=== PATIENT | male | born 1960 | race Caucasian/White ===

== ENCOUNTER 2024-09-08 12:28 | Inpatient (IN) | payer MEDICARE, OTHER ==
[2024-09-08] MEDS: levETIRAcetam IV 500 MG/5 ML VIAL IVP STA (12:41)
[2024-09-08 12:43] LABS: Glucose,Whole Blood 140 mg/dL (70-110)
[2024-09-08 12:54] LABS: Basophils # (A) 0.1 k/uL (0-0.2); Basophils % (A) 1 %; Eosinophils # (A) 0.7 k/uL (0-0.7); Eosinophils % (A) 7 %; HGB 14.8 gm/dL (13.0-17.5); Lymphocytes # (A) 3.2 k/uL (1.0-4.8); Lymphocytes % (A) 31 %; MCH 31.2 pg (25.0-35.0); MCHC 32.1 g/dL (31.0-37.0); MCV 97.3 fL (80.0-100.0); Mean Platelet Volume 7.1; Monocytes # (A) 0.5 k/uL (0-1.0); Monocytes % (A) 4 %; Neutrophils # (A) 5.7 k/uL (1.3-7.7); Neutrophils % (A) 55 %; Platelet Count 402 k/uL (150-450); RBC 4.73 m/uL (4.30-5.90); RDW 12.6 % (11.5-15.5); WBC 10.4 k/uL (3.8-10.6)
[2024-09-08] MEDS: SODIUM CHLORIDE 0.9% 1,000 ML IV STA (12:56)
--- NOTE | 2024-09-08 12:57 | ED ---
General Adult HPI - General Chief complaint: Altered Mental Status Stated complaint: seizure Time Seen by Provider: 09/08/24 12:31 Source: family, RN notes reviewed Mode of arrival: EMS Limitations: language barrier, altered mental status, physical limitation - History of Present Illness Initial comments: Patient is a 64-year-old male present to the emergency department with concern for seizure. History is obtained from as patient has garbled speech from previous large stroke less than a year ago. Patient has also right-sided deficits which family feels is unchanged. Patient provides no history other than agreeing that he feels well. states patient did have an episode where his eyes rolled back and he did have shaking lasting 4 to 5 minutes. Patient woke up after that time. No history of similar symptoms previously. No history of previous seizure. - Related Data Home Medications Medication Instructions Recorded Confirmed Atorvastatin [Lipitor] 40 mg PO DAILY 09/08/24 09/08/24 DULoxetine HCL [Cymbalta] 60 mg PO DAILY 09/08/24 09/08/24 Gabapentin 300 mg PO TID 09/08/24 09/08/24 HYDROcodone/APAP 7.5-325MG [[place] 1 tab PO Q6H PRN 09/08/24 09/08/24 7.5-325] Losartan [Cozaar] 50 mg PO DAILY 09/08/24 09/08/24 Umeclidinium [place] [Incruse 1 puff INHALATION RT-DAILY 09/08/24 09/08/24 Ellipta] hydrOXYzine HCL [Atarax] 25 mg PO TID 09/08/24 09/08/24 hydroCHLOROthiazide 12.5 mg PO DAILY 09/08/24 09/08/24 Allergies Allergy/AdvReac Type Severity Reaction Status Date / Time No Known Allergies Allergy Verified 09/08/24 13:27 Review of Systems ROS Statement: Those systems with pertinent positive or pertinent negative responses have been documented in the HPI. ROS Other: All systems not noted in ROS Statement are negative. Limitations: ROS unobtainable due to patients medical condition Past Medical History Past Medical History: Asthma, COPD, CVA/TIA, Diabetes Mellitus Additional Past Medical History / Comment(s): stroke with right sided defecits, peg tube, back surgery, Past Surgical History: Tonsillectomy Past Psychological History: No Psychological Hx Reported Smoking Status: Current every day smoker Past Alcohol Use History: Occasional Past Drug Use History: Marijuana General Exam Limitations: no limitations General appearance: alert, in no apparent distress Head exam: Present: atraumatic Eye exam: Present: normal appearance, PERRL, EOMI Neck exam: Present: normal inspection Respiratory exam: Present: wheezes Cardiovascular Exam: Present: regular rate, normal rhythm GI/Abdominal exam: Present: soft. Absent: tenderness Extremities exam: Present: normal inspection. Absent: pedal edema, calf tenderness Neurological exam: Present: alert Expanded Neurological exam: Present: protecting the airway Speech: Present: expressive aphasia Cranial nerves: EOM's Intact: Normal Motor strength exam: RUE: 0, LUE: 5, RLE: 3, LLE: 5 Eye Response: (4) open spontaneously Motor Response: (6) obeys commands Verbal Response: incomprehensible sounds Psychiatric exam: Present: normal affect, normal mood Skin exam: Present: normal color Course Vital Signs 09/08/24 09/08/24 09/08/24 12:30 12:52 13:20 Temperature 97.6 F Pulse Rate 87 75 75 Respiratory 18 18 Rate Blood Pressure 106/85 O2 Sat by Pulse 88 L 93 L Oximetry 09/08/24 09/08/24 13:32 13:39 Temperature Pulse Rate 87 72 Respiratory 18 Rate Blood Pressure 116/82 O2 Sat by Pulse 95 Oximetry EKG Findings - EKG Results: EKG: interpreted by ERMD, sinus rhythm, normal axis, normal QRS, normal ST/T Medical Decision Making - Medical Decision Making Was pt. sent in by a medical professional or institution (, PA, WEB CONTENT PRODUCER, urgent care, hospital, or penitentiary...) When possible be specific @ -No Did you speak to anyone other than the patient for history (EMS, parent, family, police, friend...)? What history was obtained from this source @ -Majority of history taken from as patient is nonverbal Did you review nursing and triage notes (agree or disagree)? Why? @ -I reviewed and agree with nursing and triage notes Were old charts reviewed (outside hosp., previous admission, EMS record, old EKG, old radiological studies, urgent care reports/EKG's, penitentiary records)? Report findings @ -No old charts were reviewed Differential Diagnosis (chest pain, altered mental status, abdominal pain women, abdominal pain men, vaginal bleeding, weakness, fever, dyspnea, syncope, headache, dizziness, GI bleed, back pain, seizure, CVA, palpatations, mental h ealth, musculoskeletal)? @ -Differential Seizure: Recurrent seizure disorder, febrile seizure, alcohol withdrawal, stimulants, meningitis, encephalitis, intercranial hemorrhage, intracranial tumor, stroke, eclampsia, thyrotoxicosis, hypocalcemia, hyponatremia, hypernatremia, hypomagnesemia, psychogenic, this is not meant to be an all-inclusive list. EKG interpreted by me (3pts min.). @ -As above X-rays interpreted by me (1pt min.). @ -Chest x-ray concerning for infiltrates right upper and left lower CT interpreted by me (1pt min.). @ -CT scan of the brain shows large old left CVA U/S interpreted by me (1pt. min.). @ -None done What testing was considered but not performed or refused? (CT, X-rays, U/S, labs)? Why? @ -None What meds were considered but not given or refused? Why? @ -None Did you discuss the management of the patient with other professionals (professionals i.e. , PA, WEB CONTENT PRODUCER, lab, RT, psych nurse, social work program coordinator, rod puller and coiler, teacher, recreation officer, returned case inspector)? Give summary @ -Case discussed with Dr. Horan who will admit covering visiting physician group, this is who family states his primary care physician Was smoking cessation discussed for >3mins.? @ -No Was critical care preformed (if so, how long)? @ -No Were there social determinants of health that impacted care today? How? (Homelessness, low income, unemployed, alcoholism, drug addiction, transpor tation, low edu. Level, literacy, decrease access to med. care, custodial, rehab)? @ -No Was there de-escalation of care discussed even if they declined (Discuss DNR or withdrawal of care, Hospice)? DNR status @ -No What co-morbidities impacted this encounter? (DM, HTN, Smoking, COPD, CAD, Cancer, CVA, ARF, Chemo, Hep., AIDS, mental health diagnosis, sleep apnea, morbid obesity)? @ -History of large CVA Was patient admitted / discharged? Hospital course, mention meds given and route, prescriptions, significant lab abnormalities, going to OR and other pertinent info. @ -Patient presents with a peers to be new onset seizure. Patient does have some hypoxia and chest x-ray concerning for pneumonia. Patient will be admitted. Concern for pneumonia diagnosed at 1340. Blood cultures and lactic acid and IV antibiotics will be ordered. Patient and family reevaluated and updated. Admission orders written. Undiagnosed new problem with uncertain prognosis? @ -No Drug Therapy requiring intensive monitoring for toxicity (Heparin, Nitro, Insulin, Cardizem)? @ -No Were any procedures done? @ -No Diagnosis/symptom? @ -New onset seizure, pneumonia Acute, or Chronic, or Acute on Chronic? @ -Acute, acute Uncomplicated (without systemic symptoms) or Complicated (systemic symptoms)? @ -Default Side effects of treatment? @ -No Exacerbation, Progression, or Severe Exacerbation? @ -No Poses a threat to life or bodily function? How? (Chest pain, [place], [place], pneumonia, PE, COPD, DKA, ARF, appy, cholecystitis, CVA, Diverticulitis, Homicidal, Suicidal, threat to staff... and all critical care pts) @ -Threat to pulmonary and neurological function - Lab Data Result diagrams: 09/08/24 12:39 09/08/24 12:39 Lab Results 09/08/24 09/08/24 09/08/24 Range/Units 12:36 12:39 12:39 WBC 10.4 (3.8-10.6) k/uL RBC 4.73 (4.30-5.90) m/uL Hgb 14.8 (13.0-17.5) gm/dL Hct 46.0 (39.0-53.0) % MCV 97.3 (80.0-100.0) fL MCH 31.2 (25.0-35.0) pg MCHC 32.1 (31.0-37.0) g/dL RDW 12.6 (11.5-15.5) % Plt Count 402 (150-450) k/uL MPV 7.1 Neutrophils % 55 % Lymphocytes % 31 % Monocytes % 4 % Eosinophils % 7 % Basophils % 1 % Neutrophils # 5.7 (1.3-7.7) k/uL Lymphocytes # 3.2 (1.0-4.8) k/uL Monocytes # 0.5 (0-1.0) k/uL Eosinophils # 0.7 (0-0.7) k/uL Basophils # 0.1 (0-0.2) k/uL Sodium 136 L (137-145) mmol/L Potassium 3.7 (3.5-5.1) mmol/L Chloride 99 (98-107) mmol/L Carbon Dioxide 22 (22-30) mmol/L Anion Gap 15 mmol/L BUN 11 (9-20) mg/dL Creatinine 0.71 (0.66-1.25) mg/dL Est GFR (CKD-EPI)AfAm >90 (>60 ml/min/1.73 sqM) Est GFR (CKD-EPI)NonAf >90 (>60 ml/min/1.73 sqM) Glucose 149 H (74-99) mg/dL POC Glucose (mg/dL) 140 H (70-110) mg/dL POC Glu Import Specialist ID Monique Marr Calcium 9.8 (8.4-10.2) mg/dL Magnesium 1.9 (1.6-2.3) mg/dL Total Bilirubin 0.5 (0.2-1.3) mg/dL AST 24 (17-59) U/L ALT 17 (4-49) U/L Alkaline Phosphatase 81 (38-126) U/L Total Protein 7.6 (6.3-8.2) g/dL Albumin 4.5 (3.5-5.0) g/dL Serum Alcohol <10 mg/dL Disposition Clinical Impression: New onset seizure, Pneumonia Disposition: ADMITTED IP TO THIS [facility] Instructions (If sedation given, give patient instructions): Seizure/Epilepsy Discharge Instructions & Follow-Up Is patient prescribed a controlled substance at d/c from ED?: No Referrals: None,Stated [Primary Care Provider] - 1-2 days Time of Disposition: 13:48
--- NOTE | 2024-09-08 13:18 | XR ---
EXAMINATION TYPE: XR chest 2V DATE OF EXAM: 09/08/2024 CLINICAL INDICATION: Male, 64 years old with history of wheezing, TECHNIQUE: Frontal and lateral views of the chest are obtained. COMPARISON: None FINDINGS: Lateral view is suboptimal due to large body habitus and overlying upper extremity. There a re low lung volumes. There is lateral right mid lung and left lower lung increased opacity. No pleura l effusion or pneumothorax is seen bilaterally. Cardiac silhouette size is within normal limits. The osseous structures are intact. IMPRESSION: Low lung volumes with lateral right midlung and left lower lung acute infiltrates. [facility], , 09/08/2024 1:16 PM
[2024-09-08] MEDS: IPRATROPIUM-ALBUTEROL 3 ML NEB INHALATION STA (13:20)
--- NOTE | 2024-09-08 13:22 | CT ---
EXAMINATION TYPE: CT brain wo con CT DLP: 1186.4 mGycm, Automated exposure control for dose reduction was used. DATE OF EXAM: 09/08/2024 1:13 PM COMPARISON: None. CLINICAL INDICATION:Male, 64 years old with history of seizure activity, seizure activity TECHNIQUE: Brain: Multiple axial CT images of the brain were obtained without IV contrast. . Coronal and sagitta l reformats reviewed. FINDINGS: Brain: Extra-axial spaces: No abnormal extra-axial fluid collections. Ventricular system: No hydrocephalus. Ex vacuo dilatation of the left lateral ventricle. Cerebral parenchyma: Encephalomalacia from large left prior MCA infarct involving the left frontal, p arietal, and temporal lobes. There is also involvement of the left basal ganglia and insula. No acute intraparenchymal hemorrhage or mass effect. The shen-white junction is well differentiated. Cerebellum: Unremarkable. Mass effect: No evidence of midline shift. Intracranial vasculature: Atherosclerotic calcifications of the intracranial vessels. Soft tissues: Normal. Calvarium/osseous structures: No depressed skull fracture. Remote fracture of the right lamina papyra cea. Paranasal sinuses and mastoid air cells: The mastoid air cells are clear. Moderate mucosal thickening of the bilateral maxillary sinuses. Mild mucosal thickening of the bilateral sphenoid sinuses. Moder ate mucosal thickening of the right ethmoid sinus with mild to moderate mucosal thickening of the lef t ethmoid sinus. The left frontal sinus is relatively clear. Moderate mucosal thickening of the right frontal sinus. Visualized orbits: Orbital contents are intact. IMPRESSION: 1. No acute intracranial process. 2. Encephalomalacia from large remote left MCA territory infarct. Consider MRI if there is continued clinical concern. 3. Moderate paranasal sinus disease. [facility], , 09/08/2024 1:19 PM
[2024-09-08 13:30] LABS: ALT 17 U/L (4-49); AST 24 U/L (17-59); African American GFR (CKD) >90 (>60 ml/min/1.73 sqM); Albumin 4.5 g/dL (3.5-5.0); Alcohol <10 mg/dL; Alkaline Phosphatase 81 U/L (38-126); Anion Gap 15 mmol/L; Blood Urea Nitrogen 11 mg/dL (9-20); Calcium 9.8 mg/dL (8.4-10.2); Carbon Dioxide 22 mmol/L (22-30); Chloride 99 mmol/L (98-107); Glucose 149 mg/dL (74-99); Magnesium 1.9 mg/dL (1.6-2.3); Non-African American GFR(CKD) >90 (>60 ml/min/1.73 sqM); Potassium 3.7 mmol/L (3.5-5.1); Sodium 136 mmol/L (137-145); Total Bilirubin 0.5 mg/dL (0.2-1.3); Total Protein 7.6 g/dL (6.3-8.2)
[2024-09-08] MEDS ORDERED: PNEUMONIA PROTOCOL UTILIZED 1 EACH MISC PO PRN (13:49)
[2024-09-08] MEDS: SODIUM CHLORIDE 0.9% 1,000 ML IV SCH (14:55)
[2024-09-08] MEDS: IPRATROPIUM-ALBUTEROL 3 ML NEB INHALATION PRN (15:19)
[2024-09-08 15:25] LABS: Influenza A Not Detected (Not Detectd); Influenza B Not Detected (Not Detectd); RSV Not Detected (Not Detectd)
[2024-09-08] MEDS: AZITHROMYCIN 500 MG in SODIUM CHLORIDE 0.9% 250 ML IVPB STA (15:51)
[2024-09-08] MEDS ORDERED: hydrOXYzine HCL 25 MG TAB PO SCH (16:00)
[2024-09-08] MEDS: HYDROcodone/APAP 7.5-325MG 1 EACH TAB PO PRN (17:02)
[2024-09-08] MEDS: GABAPENTIN 300 MG CAP PO SCH (17:02)
[2024-09-08] MEDS: ENOXAPARIN 40 MG/0.4 ML SYRINGE SQ SCH (19:17)
--- NOTE | 2024-09-08 19:33 | P.CNPUL ---
History of Present Illness Consult date: 09/08/24 Reason for consult: pneumonia History of present illness: 64-year-old female patient, presented to the emergency department with altered mentation. The patient's was unable to provide any history. The information was given by the . The patient has had previous history of stroke and has speech deficits. The patient also has chronic right-sided weakness/hemiplegia (December 2023). He is wheelchair dependent and he is nonambulatory. He has a feeing tube. There is a concern for an underlying seizure disorder as the patient's noted that he had an episode where he had up rolling of the eyes and shaking that lasted for around 4 to 5 minutes. No previous history of seizure disorder. Based on that, the patient was brought into the hospital. The patient was afebrile. Hemodynamically stable. Currently is on 4 L of oxygen by nasal cannula. The white cell count is at 10.4 with a hemoglobin 14.8 and a platelet count of 402. Electrolytes are all within normal limits. LFTs are normal. Alcohol level is less than 10. The patient had a viral screen that was negative. In the emergency, a CAT scan of the brain was done that showed no acute process. There is encephalomalacia related to previous CVA the patient has a large remote left MCA distribution infarct with moderate degree of paranasal sinus disease. Chest x-ray showed small lung volumes, there is a lateral right midlung and left lower lobe pulmonary opacity concerning for pneumonia. Based on that, patient was started on IV Rocephin and Zithromax. The patient is also currently on Keppra 750 mg p.o. on a daily basis.Comorbidities include COPD, diabetes mellitus, previous history of CVA with residual right-sided weakness and speech deficits. The patient is also swallowing difficulties post CVA and the patient is receiving enteral feeding for nutritional support via a PEG tube. Patient is known to have hypertension hyperlipidemia in addition. Review of Systems Constitutional: Denies chills, Denies fever Eyes: denies as per HPI, denies blurred vision, denies bulging eye, denies decreased vision, denies diplopia, denies discharge, denies dry eye, denies irritation, denies itching, denies pain, denies photophobia, denies loss of peripheral vision, denies loss of vision, denies tunnel vision/blind spots Ears: deny: decreased hearing, ear discharge, earache, tinnitus Ears, nose, mouth and throat: Reports as per HPI Breasts: absent: as per HPI, gynecomastia Cardiovascular: Reports as per HPI Respiratory: Reports as per HPI, Reports cough Gastrointestinal: Reports as per HPI Genitourinary: Reports as per HPI Musculoskeletal: Reports as per HPI Musculoskeletal: absent: ankle pain, ankle stiffness, ankle swelling, as per HPI, elbow pain, elbow stiffness, elbow swelling, foot pain, foot stiffness, foot swelling, hand pain, hand stiffness, hand swelling, hip pain, hip stiffness, hip swelling, knee pain, knee stiffness, knee swelling, shoulder pain, shoulder stiffness, shoulder swelling, wrist pain, wrist stiffness, wrist swelling Integumentary: Reports as per HPI Neurological: Reports aphasia, Reports change in mentation, Reports gait dysfunction, Reports lack of coordination, Reports motor disturbance, Reports spasticity, Reports weakness Psychiatric: Reports as per HPI Endocrine: Reports as per HPI Hematologic/Lymphatic: Reports as per HPI Allergic/Immunologic: Reports as per HPI Past Medical History Past Medical History: COPD, CVA/TIA, Diabetes Mellitus, Hyperlipidemia, Hypertension Additional Past Medical History / Comment(s): stroke with right sided defecits, peg tube, back surgery, Past Surgical History: Tonsillectomy Past Psychological History: No Psychological Hx Reported Smoking Status: Current every day smoker Past Alcohol Use History: Occasional Past Drug Use History: Marijuana Medications and Allergies Home Medications Medication Instructions Recorded Confirmed Type Atorvastatin [Lipitor] 40 mg PO DAILY 09/08/24 09/08/24 History DULoxetine HCL [Cymbalta] 60 mg PO DAILY 09/08/24 09/08/24 History Gabapentin 300 mg PO TID 09/08/24 09/08/24 History HYDROcodone/APAP 7.5-325MG [[place] 1 tab PO Q6H PRN 09/08/24 09/08/24 History 7.5-325] Losartan [Cozaar] 50 mg PO DAILY 09/08/24 09/08/24 History Umeclidinium [place] [Incruse 1 puff INHALATION RT-DAILY 09/08/24 09/08/24 History Ellipta] hydrOXYzine HCL [Atarax] 25 mg PO TID 09/08/24 09/08/24 History hydroCHLOROthiazide 12.5 mg PO DAILY 09/08/24 09/08/24 History Allergies Allergy/AdvReac Type Severity Reaction Status Date / Time No Known Allergies Allergy Verified 09/08/24 13:27 Physical Exam Vitals: Vital Signs Temp Pulse Resp BP Pulse Ox 09/08/24 17:01 87 18 108/78 94 L 09/08/24 15:35 72 09/08/24 15:20 68 09/08/24 14:48 71 18 101/88 100 09/08/24 13:39 72 18 116/82 95 09/08/24 13:32 87 09/08/24 13:20 75 09/08/24 12:52 75 18 93 L 09/08/24 12:30 97.6 F 87 18 106/85 88 L Intake and Output 09/08/24 09/08/24 09/08/24 06:59 14:59 22:59 Output Total 300 Balance -300 Output: Urine 300 Other: # Voids 1 Weight 107.774 kg The patient appeared well nourished and normally developed. Vital signs as documented. Currently on 4 L of oxygen by nasal cannula Head exam is unremarkable. No scleral icterus or corneal arcus noted. Facial asymmetry with right sided weakness Neck is without jugular venous distension, thyromegaly, or carotid bruits. Carotid upstrokes are brisk bilaterally. Lungs are clear to auscultation and percussion. Cardiac exam reveals the PMI to be normally sized and situated. Rhythm is regular. First and second heart sounds normal. No murmurs, rubs or gallops. Abdominal exam reveals normal bowel sounds, no masses, no organomegaly and no aortic enlargement. Patient has a PEG tube in place Extremities are nonedematous and both femoral and pedal pulses are normal. Examination of the skin revealed no evidence of significant rashes, suspicious appearing nevi or other concerning lesions. Neurologically, the patient is altered neurologically the patient has right- sided hemiplegia related to previous CVA Results - Laboratory Findings CBC and BMP: 09/08/24 12:39 09/08/24 12:39 Abnormal lab findings: Abnormal Labs 09/08/24 09/08/24 12:36 12:39 Sodium 136 L Glucose 149 H POC Glucose (mg/dL) 140 H - Diagnostic Findings Chest x-ray: image reviewed Assessment and Plan Plan: Acute bilateral pneumonia with secondary hypoxic respiratory failure, consider aspiration as the patient has chronic dysphagia and he has been orally eating and the patient had ? seizures Acute hypoxic respiratory failure, currently on 4 L of oxygen by nasal cannula History of CVA with right-sided hemiplegia and expressive aphasia Chronic dysphagia, patient was receiving tube feeds and around 2 months ago the patient was started on oral and he has not undergone a Barium swallow Altered mentation, rule out underlying seizure and he patient is back to baseline Hypertension Hyperlipidemia Obesity COPD Plan Titrate oxygen flow to maintain saturation above 90%. Oxygenation is improved and the patient is currently on room air oxygen and is maintaining a saturation of 97% aspiration precautions Keep the patient n.p.o. for now till we do further testing. There is an increased risk for aspiration and this needs to be further investigated with a barium swallow Meanwhile, the patient should be able to receive enteral feeding and I am going to put a dietary consultation Barium swallow is to be ordered IV Unasyn EEG of the brain Neurology consultation start the patient on Keppra for any potential seizures Will continue to follow Okay will
[2024-09-08] MEDS: AMPICILLIN-SULBACTAM 1.5 GM in SODIUM CHLORIDE 0.9% 50 ML IVPB SCH (19:56)
[2024-09-08] MEDS: levETIRAcetam 250 MG TAB PO SCH (20:26)
--- NOTE | 2024-09-08 22:20 | P.HPIM ---
History of Present Illness H&P Date: 09/08/24 Chief Complaint: Seizure This is a 64-year-old patient follows with home MD, provider Blaire. Chronic medical condition include diabetes, hypertension, hyperlipidemia PEG tube.Patient's speech cannot be deciphered. History is obtained by the at the bedside. December 2023 patient had a rather stroke. Affecting mainly the right side. Patient started using the right leg. No movement in the right arm. Patient's speech is a bit better now but cannot really be understood. Patient is able to follow commands. Able to feed himself. Patient now working with therapy has a right leg brace. Was able to use 8 steps with a walker yesterday. Has a PEG tube that is not being used. has been feeding him by mouth. Patient is due for a barium swallow study today. Patient was noted to be "what was described as a possible seizure activity. Eyes rolled back. Shaking. Patient was confused for some time afterwards. Patient continues to smoke Review of systems as above. Social history: Lives with his . Smokes a pack a day for a long time. Physical examination: VITAL SIGNS: 97.6, 87, 18, 106 x 85, 88% room air GENERAL: BMI 34.1, laying bed awake. EYES: Pupils equal. Conjunctiva felicia l. HEENT: External appearance of nose and ears normal, oral cavity grossly normal. NECK: JVD not raised; masses not palpable. HEART: First and second heart sounds are normal; no edema. LUNGS: Respiratory rate normal; decreased breath sounds. ABDOMEN: Soft, nontender, liver spleen not palpable, no masses palpable. PEG tube PSYCH: Patient not able to speak l. MUSCULOSKELETAL:No Clubbing/cyanosis;muscles-grossly intact NEUROLOGICAL: Cranial nerves grossly intact; no facial asymmetry, speech does not make sense. Power in right arm 0/5. Some movement in the right leg.. LYMPHATICS: No lymph nodes palpable in the axilla and neck INVESTIGATIONS, reviewed in the clinical context: September 08, 2024: White count 10.4 hemoglobin 14.8 platelets 402 sodium 136 potassium 3.7 creatinine 0.71 EKG tracing personally reviewed by me-normal sinus rhythm. Chest x-ray film personally reviewed by me-scattered infiltrates CT brain without contrast: Encephalomalacia from large (MCA infarct involving the left frontal parietal temporal lobes. Also involvement of the left basal ganglia and insula. Influenza type A, type B, RSV, SARS-CoV-2: Not detected Assessment and plan: -New onset seizures likely precipitated by prior significant stroke in December 2023. This was her first witnessed episode. Because of significant stroke and high risk of recurrent seizure. Placed on Keppra. -Right hemiparesis with more loss of power in the right arm. From previous stroke in December 2023. Patient is getting physical therapy. Has a brace of the right leg. As of yesterday took about 8 steps with walker. 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 Speech cannot be understood -Dysphagia. Patient has a PEG tube has not been used. Patient has been feeding him. Will order a modified barium swallow. Consult speech. Hold off using PEG tube k for now. Patient to be kept n.p.o. except for medications with applesauce. -Probable aspiration pneumonitis secondary to seizure activity IV Unasyn -Essential hypertension Cozaar. Hydrochlorothiazide. -Hyperlipidemia Lipitor -Chronic nicotine dependence cigarette smoker Nicotine patch -COPD in a current smoker DuoNeb 3 times daily -Full code, discussed with Past Medical History Past Medical History: COPD, CVA/TIA, Diabetes Mellitus, Hyperlipidemia, Hypertension Additional Past Medical History / Comment(s): stroke with right sided defecits, peg tube, back surgery, Past Surgical History: Tonsillectomy Past Psychological History: No Psychological Hx Reported Smoking Status: Current every day smoker Past Alcohol Use History: Occasional Past Drug Use History: Marijuana Medications and Allergies Home Medications Medication Instructions Recorded Confirmed Type Atorvastatin [Lipitor] 40 mg PO DAILY 09/08/24 09/08/24 History DULoxetine HCL [Cymbalta] 60 mg PO DAILY 09/08/24 09/08/24 History Gabapentin 300 mg PO TID 09/08/24 09/08/24 History HYDROcodone/APAP 7.5-325MG [[place] 1 tab PO Q6H PRN 09/08/24 09/08/24 History 7.5-325] Losartan [Cozaar] 50 mg PO DAILY 09/08/24 09/08/24 History Umeclidinium [place] [[place] 1 puff INHALATION RT-DAILY 09/08/24 09/08/24 History Ellipta] hydrOXYzine HCL [Atarax] 25 mg PO TID 09/08/24 09/08/24 History hydroCHLOROthiazide 12.5 mg PO DAILY 09/08/24 09/08/24 History Allergies Allergy/AdvReac Type Severity Reaction Status Date / Time No Known Allergies Allergy Verified 09/08/24 13:27 Physical Exam Vitals: Vital Signs Temp Pulse Resp BP Pulse Ox 09/08/24 20:27 71 16 93/79 95 09/08/24 20:01 71 09/08/24 19:52 66 09/08/24 19:16 72 18 111/75 96 09/08/24 17:01 87 18 108/78 94 L 09/08/24 15:35 72 09/08/24 15:20 68 09/08/24 14:48 71 18 101/88 100 09/08/24 13:39 72 18 116/82 95 09/08/24 13:32 87 09/08/24 13:20 75 09/08/24 12:52 75 18 93 L 09/08/24 12:30 97.6 F 87 18 106/85 88 L Intake and Output 09/08/24 09/08/24 09/08/24 06:59 14:59 22:59 Output Total 300 Balance -300 Output: Urine 300 Other: # Voids 1 Weight 107.774 kg Results CBC & Chem 7: 09/08/24 12:39 09/08/24 12:39 Labs: Abnormal Lab Results - Last 24 Hours (Table) 09/08/24 09/08/24 Range/Units 12:36 12:39 Sodium 136 L (137-145) mmol/L Glucose 149 H (74-99) mg/dL POC Glucose (mg/dL) 140 H (70-110) mg/dL
[2024-09-08] MEDS: LACTATED RINGERS 1,000 ML IV SCH (23:41)
--- NOTE | 2024-09-09 06:49 | XR ---
EXAMINATION TYPE: XR chest 1V DATE OF EXAM: 09/09/2024 3:53 AM COMPARISON: Chest radiographs from 09/08/2024 TECHNIQUE: XR chest 1V Portable AP radiograph of the chest. CLINICAL INDICATION:Male, 64 years old with history of pneumonia; FINDINGS: Patient is rotated which limits evaluation. Lungs/Pleura: There is no evidence of pleural effusion or pneumothorax. Improving subtle right midlun g and bilateral lower lung airspace opacities. Pulmonary vascularity: Unremarkable. Heart/mediastinum: Cardiomediastinal silhouette is unremarkable. Musculoskeletal: No acute osseous pathology. IMPRESSION: Improving subtle right midlung and bilateral lower lung airspace opacities. [facility], , 09/09/2024 6:47 AM
[2024-09-09] MEDS ORDERED: TIOTROPIUM 2.5 MCG INHALER INHALATION SCH (08:00)
[2024-09-09] MEDS: DULoxetine HCL 60 MG CAPSULE.DR PO SCH (09:00)
[2024-09-09] MEDS: hydroCHLOROthiazide 12.5 MG CAP PO SCH (09:00)
[2024-09-09] MEDS: LOSARTAN 50 MG TAB PO SCH (09:00)
[2024-09-09] MEDS ORDERED: AZITHROMYCIN 500 MG TAB PO SCH (09:00)
[2024-09-09] MEDS: ATORVASTATIN 40 MG TAB PO SCH (09:01)
[2024-09-09] MEDS: TIOTROPIUM 2.5 MCG INHALER INHALATION SCH (09:23)
[2024-09-09 14:07] VITALS: BMI 34.0
--- NOTE | 2024-09-09 14:07 | P.PN ---
Subjective Progress Note Date: 09/09/24 64-year-old female patient, presented to the emergency department with altered mentation. The patient's was unable to provide any history. The information was given by the . The patient has had previous history of stroke and has speech deficits. The patient also has chronic right-sided weakness/hemiplegia (December 2023). He is wheelchair dependent and he is nonambulatory. He has a feeing tube. There is a concern for an underlying seizure disorder as the patient's noted that he had an episode where he had up rolling of the eyes and shaking that lasted for around 4 to 5 minutes. No previous history of seizure disorder. Based on that, the patient was brought into the hospital. The pat ient was afebrile. Hemodynamically stable. Currently is on 4 L of oxygen by nasal cannula. The white cell count is at 10.4 with a hemoglobin 14.8 and a platelet count of 402. Electrolytes are all within normal limits. LFTs are normal. Alcohol level is less than 10. The patient had a viral screen that was negative. In the emergency, a CAT scan of the brain was done that showed no acute process. There is encephalomalacia related to previous CVA the patient has a large remote left MCA distribution infarct with moderate degree of paranasal sinus disease. Chest x-ray showed small lung volumes, there is a lateral right midlung and left lower lobe pulmonary opacity concerning for pneumonia. Based on that, patient was started on IV Rocephin and Zithromax. The patient is also currently on Keppra 750 mg p.o. on a daily basis.Comorbidities include COPD, diabetes mellitus, previous history of CVA with residual right-sided weakness and speech deficits. The patient is also swallowing difficulties post CVA and the patient is receiving enteral feeding for nutritional support via a PEG tube. Patient is known to have hypertension hyperlipidemia in addition. On 09/09/2024, the patient is being seen for a follow-up. Patient is clinically stable. Remains NPO. No interval worsening shortness of breath. The patient currently is on 3 L of oxygen by nasal cannula with a pulse ox of 92%. No seizure activity has been noted. Family is at the bedside. Awaiting and neurology consultation. The patient was maintained on a IV Unasyn regarding aspiration pneumonia. Remains on DuoNeb nebulized treatments [id number]. Objective - Vital Signs Vital signs: Vital Signs Temp 98.2 F 09/09/24 10:28 Pulse 76 09/09/24 10:28 Resp 20 09/09/24 10:28 BP 96/71 09/09/24 10:28 Pulse Ox 94 L 09/09/24 10:28 FiO2 Intake & Output 09/08/24 09/09/24 09/09/24 18:59 06:59 18:59 Output Total 300 550 Balance -300 -550 Weight 107.774 kg Output: Urine 300 550 Other: # Voids 1 - Exam The patient appeared well nourished and normally developed. Vital signs as documented. Currently on 3 L of oxygen by nasal cannula Head exam is unremarkable. No scleral icterus or corneal arcus noted. Facial asymmetry with right sided weakness Neck is without jugular venous distension, thyromegaly, or carotid bruits. Carotid upstrokes are brisk bilaterally. Lungs are clear to auscultation and percussion. Cardiac exam reveals the PMI to be normally sized and situated. Rhythm is regular. First and second heart sounds normal. No murmurs, rubs or gallops. Abdominal exam reveals normal bowel sounds, no masses, no organomegaly and no aortic enlargement. Patient has a PEG tube in place Extremities are nonedematous and both femoral and pedal pulses are normal. Examination of the skin revealed no evidence of significant rashes, suspicious appearing nevi or other concerning lesions. Neurologically, the patient is altered neurologically the patient has right- sided hemiplegia related to previous CVA - Labs CBC & Chem 7: 09/08/24 12:39 09/08/24 12:39 Labs: Abnormal Lab Results - Last 24 Hours (Table) 09/08/24 09/08/24 Range/Units 12:36 12:39 Sodium 136 L (137-145) mmol/L Glucose 149 H (74-99) mg/dL POC Glucose (mg/dL) 140 H (70-110) mg/dL Assessment and Plan Plan: Acute bilateral pneumonia with secondary hypoxic respiratory failure, consider aspiration as the patient has chronic dysphagia and he has been orally eating and the patient had ? seizures Acute hypoxic respiratory failure, currently on 3 L of oxygen by nasal cannula History of CVA with right-sided hemiplegia and expressive aphasia Chronic dysphagia, patient was receiving tube feeds and around 2 months ago the patient was started on oral and he has not undergone a Barium swallow Altered mentation, rule out underlying seizure and he patient is back to baseline Hypertension Hyperlipidemia Obesity COPD Plan Clinically stable and unchanged compared to yesterday and the patient is stable for now. Titrate oxygen flow to maintain saturation above 90%. Oxygenation is improved and the patient is currently on room air oxygen and is maintaining a saturation of 97% aspiration precautions Keep the patient n.p.o. for now till we do further testing. There is an increased risk for aspiration and this needs to be further investigated with a barium swallow Meanwhile, the patient should be able to receive enteral feeding and I am going to put a dietary consultation Barium swallow is to be ordered IV Unasyn EEG of the brain Neurology consultation start the patient on Keppra for any potential seizures Will continue to follow Time with Patient: Greater than 30
--- NOTE | 2024-09-09 18:32 | P.PN ---
Progress Note - Text Progress Note Date: 09/09/24 Chief Complaint: Seizure This is a 64-year-old patient follows with home MD, provider Blaire. Chronic medical condition include diabetes, hypertension, hyperlipidemia PEG tube.Patient's speech cannot be deciphered. History is obtained by the at the bedside. December 2023 patient had a rather stroke. Affecting mainly the right side. Patient started using the right leg. No movement in the right arm. Patient's speech is a bit better now but cannot really be understood. Patient is able to follow commands. Able to feed himself. Patient now working with therapy has a right leg brace. Was able to use 8 steps with a walker yesterday. Has a PEG tube that is not being used. has been feeding him by mouth. Patient is due for a barium swallow study today. Patient was noted to be "what was described as a possible seizure activity. Eyes rolled back. Shaking. Patient was confused for some time afterwards. Patient continues to smoke September 09: Overflowing the ER. at the bedside. Spoke to the nurse. Put the patient on applesauce. Still formal swallow study done on Wednesday. Discussed with . On IV Unasyn. Taking oral medications. Active Medications Hydrocodone Bitart/Acetaminophen (Hydrocodone/Apap 7.5-325mg 1 Each Tab) 1 each PO Q6H PRN PRN Reason: Pain Last Admin: 09/09/24 09:01 Dose: 1 each Albuterol/Ipratropium (Ipratropium-Albuterol 3 Ml Neb) 3 ml INHALATION RT-Q4H PRN PRN Reason: shortness of breath Last Admin: 09/08/24 19:50 Dose: 3 ml Atorvastatin Calcium (Atorvastatin 40 Mg Tab) 40 mg PO DAILY [facility] Last Admin: 09/09/24 09:01 Dose: 40 mg Duloxetine HCl (Duloxetine Hcl 60 Mg Capsule.Dr) 60 mg PO DAILY [facility] Last Admin: 09/09/24 09:00 Dose: 60 mg Enoxaparin Sodium (Enoxaparin 40 Mg/0.4 Ml Syringe) 40 mg SQ DAILY [facility] Last Admin: 09/09/24 09:02 Dose: 40 mg Gabapentin (Gabapentin 300 Mg Cap) 300 mg PO TID [facility] Last Admin: 09/09/24 15:22 Dose: 300 mg Hydrochlorothiazide (Hydrochlorothiazide 12.5 Mg Cap) 12.5 mg PO DAILY [facility] Last Admin: 09/09/24 09:00 Dose: 12.5 mg Ampicillin Sodium/Sulbactam (Sodium 1.5 gm/ Sodium Chloride) 50 mls @ 100 mls/hr IVPB Q6HR [facility]; Protocol Last Admin: 09/09/24 12:03 Dose: 100 mls/hr Lactated Ringer's (Lactated Ringers) 1,000 mls @ 100 mls/hr IV .Q10H [facility] Last Admin: 09/09/24 14:41 Dose: 100 mls/hr Levetiracetam (Levetiracetam 750 Mg Tab) 750 mg PO Q12HR [place] Losartan Potassium (Losartan 50 Mg Tab) 50 mg PO DAILY [facility] Last Admin: 09/09/24 09:02 Dose: 50 mg Miscellaneous Information (Pneumonia Protocol Utilized 1 Each Misc) 1 each PO ONCE PRN PRN Reason: Per Protocol Tiotropium [place] (Tiotropium 2.5 Mcg Inhaler) 2 puff INHALATION RT-DAILY [facility] Last Admin: 09/09/24 09:23 Dose: 2 puff Social history: Lives with his . Smokes a pack a day for a long time. Physical examination: VITAL SIGNS: 98.2, 71, 18, 92.72, 92% on 3 L GENERAL: BMI 34.1, sitting up in bed. EYES: Pupils equal. Conjunctiva felicia l. HEENT: External appearance of nose and ears normal, oral cavity grossly normal. NECK: JVD not raised; masses not palpable. HEART: First and second heart sounds are normal; no edema. LUNGS: Respiratory rate normal; decreased breath sounds. ABDOMEN: Soft, nontender, liver spleen not palpable, no masses palpable. PEG tube PSYCH: Unable to speak MUSCULOSKELETAL:No Clubbing/cyanosis;muscles-grossly intact NEUROLOGICAL: Cranial nerves grossly intact; no facial asymmetry, garbled speech e. Power in right arm 0/5. Some movement in the right leg.. INVESTIGATIONS, reviewed in the clinical context: Procalcitonin 0.06 September 08, 2024: White count 10.4 hemoglobin 14.8 platelets 402 sodium 136 potassium 3.7 creatinine 0.71 EKG tracing personally reviewed by me-normal sinus rhythm. Chest x-ray film personally reviewed by me-scattered infiltrates CT brain without contrast: Encephalomalacia from large (MCA infarct involving the left frontal parietal temporal lobes. Also involvement of the left basal ganglia and insula. Influenza type A, type B, RSV, SARS-CoV-2: Not detected Assessment and plan: -New onset seizures likely precipitated by prior significant stroke in December 2023. This was her first witnessed episode. Because of significant stroke and high risk of recurrent seizure. Placed on Keppra. EEG pending. Neurology consulted -Right hemiparesis with more loss of power in the right arm. From previous stroke in December 2023. Patient is getting physical therapy. Has a brace of the right leg. Day prior to admission took about 8 steps with walker. 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 Speech cannot be understood -Dysphagia. Patient has a PEG tube has not been used. Patient has been feeding him. Will order a modified barium swallow-Wednesday. Consult speech. Hold off using PEG tube feeding for now. Applesauce only with oral medications -Probable aspiration pneumonitis secondary to seizure activity IV Unasyn -Essential hypertension Cozaar. Hydrochlorothiazide. -Hyperlipidemia Lipitor -Chronic nicotine dependence cigarette smoker Nicotine patch -COPD in a current smoker DuoNeb 3 times daily -Full code, discussed with Past Medical History Past Medical History: COPD, CVA/TIA, Diabetes Mellitus, Hyperlipidemia, Hypertension Additional Past Medical History / Comment(s): stroke with right sided defecits, peg tube, back surgery, Past Surgical History: Tonsillectomy Past Psychological History: No Psychological Hx Reported Smoking Status: Current every day smoker Past Alcohol Use History: Occasional Past Drug Use History: Marijuana
--- NOTE | 2024-09-10 12:50 | P.PN ---
Progress Note - Text Progress Note Date: 09/10/24 Chief Complaint: Seizure This is a 64-year-old patient follows with home MD, provider Blaire. Chronic medical condition include diabetes, hypertension, hyperlipidemia PEG tube.Patient's speech cannot be deciphered. History is obtained by the at the bedside. December 2023 patient had a rather stroke. Affecting mainly the right side. Patient started using the right leg. No movement in the right arm. Patient's speech is a bit better now but cannot really be understood. Patient is able to follow commands. Able to feed himself. Patient now working with therapy has a right leg brace. Was able to use 8 steps with a walker yesterday. Has a PEG tube that is not being used. has been feeding him by mouth. Patient is due for a barium swallow study today. Patient was noted to be "what was described as a possible seizure activity. Eyes rolled back. Shaking. Patient was confused for some time afterwards. Patient continues to smoke September 09: Overflowing the ER. at the bedside. Spoke to the nurse. Put the patient on applesauce. Still formal swallow study done on Wednesday. Discussed with . On IV Unasyn. Taking oral medications. September 10: No further episodes of seizures reported. Tolerating applesauce and medications. Spoke to nurse Dayna. No signs of coughing. Pending formal swallow study tomorrow and speech therapy. Pending EEG. On Keppra. IV fluids Active Medications Hydrocodone Bitart/Acetaminophen (Hydrocodone/Apap 7.5-325mg 1 Each Tab) 1 each PO Q6H PRN PRN Reason: Pain Last Admin: 09/09/24 09:01 Dose: 1 each Albuterol/Ipratropium (Ipratropium-Albuterol 3 Ml Neb) 3 ml INHALATION RT-Q4H PRN PRN Reason: shortness of breath Last Admin: 09/08/24 19:50 Dose: 3 ml Atorvastatin Calcium (Atorvastatin 40 Mg Tab) 40 mg PO DAILY [facility] Last Admin: 09/10/24 08:41 Dose: 40 mg Duloxetine HCl (Duloxetine Hcl 60 Mg Capsule.Dr) 60 mg PO DAILY [facility] Last Admin: 09/10/24 08:41 Dose: 60 mg Enoxaparin Sodium (Enoxaparin 40 Mg/0.4 Ml Syringe) 40 mg SQ DAILY [facility] Last Admin: 09/10/24 08:40 Dose: 40 mg Gabapentin (Gabapentin 300 Mg Cap) 300 mg PO TID [facility] Last Admin: 09/10/24 08:41 Dose: 300 mg Hydrochlorothiazide (Hydrochlorothiazide 12.5 Mg Cap) 12.5 mg PO DAILY [facility] Last Admin: 09/10/24 08:41 Dose: 12.5 mg Ampicillin Sodium/Sulbactam (Sodium 1.5 gm/ Sodium Chloride) 50 mls @ 100 mls/hr IVPB Q6HR [facility]; Protocol Last Admin: 09/10/24 12:40 Dose: 100 mls/hr Lactated Ringer's (Lactated Ringers) 1,000 mls @ 100 mls/hr IV .Q10H [facility] Last Admin: 09/10/24 11:02 Dose: 100 mls/hr Levetiracetam (Levetiracetam 750 Mg Tab) 750 mg PO Q12HR [facility] Last Admin: 09/10/24 08:41 Dose: 750 mg Losartan Potassium (Losartan 50 Mg Tab) 50 mg PO DAILY [facility] Last Admin: 09/10/24 08:41 Dose: 50 mg Miscellaneous Information (Pneumonia Protocol Utilized 1 Each Misc) 1 each PO ONCE PRN PRN Reason: Per Protocol Tiotropium [place] (Tiotropium 2.5 Mcg Inhaler) 2 puff INHALATION RT-DAILY [facility] Last Admin: 09/10/24 09:39 Dose: 2 puff Social history: Lives with his . Smokes a pack a day for a long time. Physical examination: VITAL SIGNS: 98.2, 77, 16, 107 x 68, 93% room air GENERAL: BMI 34.1, laying in bed, comfortable EYES: Pupils equal. Conjunctiva felicia l. HEENT: External appearance of nose and ears normal, oral cavity grossly normal. NECK: JVD not raised; masses not palpable. HEART: First and second heart sounds are normal; no edema. LUNGS: Respiratory rate normal; decreased breath sounds. ABDOMEN: Soft, nontender, liver spleen not palpable, no masses palpable. PEG tube PSYCH: Unable to speak MUSCULOSKELETAL:No Clubbing/cyanosis;muscles-grossly intact NEUROLOGICAL: Cranial nerves grossly intact; no facial asymmetry, garbled speech . Power in right arm 0/5. Some movement in the right leg.. Moves his left side INVESTIGATIONS, reviewed in the clinical context: Procalcitonin 0.06 September 08, 2024: White count 10.4 hemoglobin 14.8 platelets 402 sodium 136 potassium 3.7 creatinine 0.71 EKG tracing personally reviewed by me-normal sinus rhythm. Chest x-ray film personally reviewed by me-scattered infiltrates CT brain without contrast: Encephalomalacia from large (MCA infarct involving the left frontal parietal temporal lobes. Also involvement of the left basal ganglia and insula. Influenza type A, type B, RSV, SARS-CoV-2: Not detected Assessment and plan: -New onset seizures likely precipitated by prior significant stroke in December 2023. This was her first witnessed episode. Because of significant stroke and high risk of recurrent seizure. Placed on Keppra. EEG pending. Neurology consulted -Right hemiparesis with more loss of power in the right arm. From previous stroke in December 2023. Patient is getting physical therapy. Has a brace of the right leg. Day prior to admission took about 8 steps with walker. 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 Speech cannot be understood -Dysphagia. Patient has a PEG tube has not been used. Patient has been feeding him. Will order a modified barium swallow-Wednesday. Consult speech. Hold off using PEG tube feeding for now. Tolerating applesauce only with oral medications -Probable aspiration pneumonitis secondary to seizure activity IV Unasyn -Essential hypertension Cozaar. Hydrochlorothiazide. -Hyperlipidemia Lipitor -Chronic nicotine dependence cigarette smoker Nicotine patch -COPD in a current smoker DuoNeb 3 times daily -Full code, [discussed with ] Pending modified barium swallow, speech therapy input. EEG pending. Past Medical History Past Medical History: COPD, CVA/TIA, Diabetes Mellitus, Hyperlipidemia, Hypertension Additional Past Medical History / Comment(s): stroke with right sided defecits, peg tube, back surgery, Past Surgical History: Tonsillectomy Past Psychological History: No Psychological Hx Reported Smoking Status: Current every day smoker Past Alcohol Use History: Occasional Past Drug Use History: Marijuana
--- NOTE | 2024-09-10 13:33 | P.PN ---
Subjective Progress Note Date: 09/10/24 64-year-old female patient, presented to the emergency department with altered mentation. The patient's was unable to provide any history. The information was given by the . The patient has had previous history of stroke and has speech deficits. The patient also has chronic right-sided weakness/hemiplegia (December 2023). He is wheelchair dependent and he is nonambulatory. He has a feeing tube. There is a concern for an underlying seizure disorder as the patient's noted that he had an episode where he had up rolling of the eyes and shaking that lasted for around 4 to 5 minutes. No previous history of seizure disorder. Based on that, the patient was brought into the hospital. The pat ient was afebrile. Hemodynamically stable. Currently is on 4 L of oxygen by nasal cannula. The white cell count is at 10.4 with a hemoglobin 14.8 and a platelet count of 402. Electrolytes are all within normal limits. LFTs are normal. Alcohol level is less than 10. The patient had a viral screen that was negative. In the emergency, a CAT scan of the brain was done that showed no acute process. There is encephalomalacia related to previous CVA the patient has a large remote left MCA distribution infarct with moderate degree of paranasal sinus disease. Chest x-ray showed small lung volumes, there is a lateral right midlung and left lower lobe pulmonary opacity concerning for pneumonia. Based on that, patient was started on IV Rocephin and Zithromax. The patient is also currently on Keppra 750 mg p.o. on a daily basis.Comorbidities include COPD, diabetes mellitus, previous history of CVA with residual right-sided weakness and speech deficits. The patient is also swallowing difficulties post CVA and the patient is receiving enteral feeding for nutritional support via a PEG tube. Patient is known to have hypertension hyperlipidemia in addition. On 09/09/2024, the patient is being seen for a follow-up. Patient is clinically stable. Remains NPO. No interval worsening shortness of breath. The patient currently is on 3 L of oxygen by nasal cannula with a pulse ox of 92%. No seizure activity has been noted. Family is at the bedside. Awaiting and neurology consultation. The patient was maintained on a IV Unasyn regarding aspiration pneumonia. Remains on DuoNeb nebulized treatments [id number]. On 09/10/2024, the patient is calm and comfortable and the patient is on room air oxygen with a pulse ox of 92%. The patient remains on IV Unasyn. No seizure a ctivity has been noted and we are still awaiting a swallow evaluation and a neurology evaluation. The patient remains on Keppra. EEG has not been completed yet. Neurology consultation is still pending. Meanwhile, the patient is awake and alert. He has chronic aphasia. Viral screen has been negative. Legionella urine antigen was also negative. No other new labs from today. Objective - Vital Signs Vital signs: Vital Signs Temp 98.2 F 09/10/24 08:00 Pulse 77 09/10/24 08:00 Resp 16 09/10/24 08:00 BP 107/68 09/10/24 08:00 Pulse Ox 99 09/10/24 09:41 FiO2 21 09/10/24 09:41 Intake & Output 09/09/24 09/10/24 09/10/24 18:59 06:59 18:59 Weight 107.774 kg 107.774 kg Other: Voiding Method Urinal - Exam The patient appeared well nourished and normally developed. Vital signs as documented. Currently on room air oxygen Head exam is unremarkable. No scleral icterus or corneal arcus noted. Facial asymmetry with right sided weakness Neck is without jugular venous distension, thyromegaly, or carotid bruits. Carotid upstrokes are brisk bilaterally. Lungs are clear to auscultation and percussion. Cardiac exam reveals the PMI to be normally sized and situated. Rhythm is regular. First and second heart sounds normal. No murmurs, rubs or gallops. Abdominal exam reveals normal bowel sounds, no masses, no organomegaly and no aortic enlargement. Patient has a PEG tube in place Extremities are nonedematous and both femoral and pedal pulses are normal. Examination of the skin revealed no evidence of significant rashes, suspicious appearing nevi or other concerning lesions. Neurologically, the patient is altered neurologically the patient has right- sided hemiplegia related to previous CVA - Labs CBC & Chem 7: 09/08/24 12:39 09/08/24 12:39 Labs: Microbiology - Last 24 Hours (Table) 09/08/24 14:37 Blood Culture - Preliminary Blood Assessment and Plan Plan: Acute bilateral pneumonia with secondary hypoxic respiratory failure, consider aspiration as the patient has chronic dysphagia and he has been orally eating and the patient had ? seizures Acute hypoxic respiratory failure, improved and the patient is currently on room air oxygen History of CVA with right-sided hemiplegia and expressive aphasia Chronic dysphagia, patient was receiving tube feeds and around 2 months ago the patient was started on oral and he has not undergone a Barium swallow Altered mentation, rule out underlying seizure and he patient is back to baseline Hypertension Hyperlipidemia Obesity COPD Plan Clinically stable and patient is currently on room air oxygen Keep the patient n.p.o. for now till we do further testing. There is an increased risk for aspiration and this needs to be further investigated with a barium swallow Meanwhile, the patient should be able to receive enteral feeding and dietary is on the case Barium swallow is to be ordered IV Unasyn EEG of the brain Neurology consultation is still pending Continue Keppra for any potential seizures Will continue to follow Time with Patient: Greater than 30
--- NOTE | 2024-09-10 16:29 | P.CNNES ---
History of Present Illness Consult date: 09/10/24 History of Present Illness: The patient is a 64-year-old male who was seen in neurologic consultation on September 10, 2024, in collaboration with Sujatha Reyes, via teleneurology. Neurology consultation is being done on this date because the original consultation was placed for the incorrect person. This patient therefore, was not on my list yesterday and so reconsultation was put in for the correction neurologist and the patient's appeared on my list today. History is obtained from the patient's who is present at the bedside at the time of the evaluation. The patient reportedly is a gentleman who has a history of a very large, left sided cerebral infarct. He was reportedly brought into the emergency department because of what appeared to be a seizure. The patient's reports that the patient was laying in bed. His eyes were open and looked as if they were rolling back into his head. He reportedly was unresponsive. She believes he was not breathing for approximately 60 seconds. There is also shaking movements lasting for approximately 3 to 4 minutes. Patient's reports that her niece was present at the time and performed the Heimlich maneuver. Apparently, immediately following the Heimlich maneuver, the patient became responsive. The reports that the patient looked at her and appropriately responded to her. The patient is however nonverbal. The patient reportedly has no history of seizure. According to the patient's , patient has been slowly improving. He does have a PEG tube placed however does not use it. He reportedly is able to swallow. The patient's reports that she feeds him. He is now able to move his right leg somewhat and was recently, with the assistance of a walker, was able to take 8 steps. In the emergency department, CT scan of the brain was performed. There is no reported evidence of acute hemorrhage or acute infarct. The previous, large, remote infarct was demonstrated. Also in the emergency department, chest x-ray was performed. There is reported to be infiltrate which was thought to be consistent with aspiration pneumonia. Review of Systems Unable to accurately obtain secondary to mental status of patient Past Medical History Past Medical History: COPD, CVA/TIA, Fibromyalgia, Hyperlipidemia, Hypertension Additional Past Medical History / Comment(s): stroke with right sided defecits, peg tube. History of Any Multi-Drug Resistant Organisms: None Reported Past Surgical History: Tonsillectomy Past Anesthesia/Blood Transfusion Reactions: No Reported Reaction Past Psychological History: No Psychological Hx Reported Smoking Status: Current every day smoker Past Alcohol Use History: Occasional Past Drug Use History: Marijuana Medications and Allergies Home Medications Medication Instructions Recorded Confirmed Type Atorvastatin [Lipitor] 40 mg PO DAILY 09/08/24 09/08/24 History DULoxetine HCL [Cymbalta] 60 mg PO DAILY 09/08/24 09/08/24 History Gabapentin 300 mg PO TID 09/08/24 09/08/24 History HYDROcodone/APAP 7.5-325MG [[place] 1 tab PO Q6H PRN 09/08/24 09/08/24 History 7.5-325] Losartan [Cozaar] 50 mg PO DAILY 09/08/24 09/08/24 History Umeclidinium [place] [Incruse 1 puff INHALATION RT-DAILY 09/08/24 09/08/24 History Ellipta] hydrOXYzine HCL [Atarax] 25 mg PO TID 09/08/24 09/08/24 History hydroCHLOROthiazide 12.5 mg PO DAILY 09/08/24 09/08/24 History Allergies Allergy/AdvReac Type Severity Reaction Status Date / Time No Known Allergies Allergy Verified 09/08/24 13:27 Physical Examination - Vital Signs Vital Signs: Vital Signs Temp Pulse Pulse Resp BP BP Pulse Ox 09/10/24 09:41 99 09/10/24 03:28 98.8 F 76 16 119/79 99 09/09/24 23:56 97.9 F 70 20 105/71 93 L 09/09/24 20:00 98.3 F 76 22 128/90 99 09/09/24 19:07 98.0 F 83 19 91/77 93 L 09/09/24 19:00 82 18 108/80 97 09/09/24 16:27 67 17 106/81 96 09/09/24 14:38 87 18 138/87 98 09/09/24 11:00 71 18 92/72 92 L 09/09/24 10:28 98.2 F 76 20 96/71 94 L FiO2 09/10/24 09:41 21 09/10/24 03:28 09/09/24 23:56 09/09/24 20:00 09/09/24 19:07 09/09/24 19:00 09/09/24 16:27 09/09/24 14:38 09/09/24 11:00 09/09/24 10:28 Intake and Output 09/09/24 09/10/24 09/10/24 22:59 06:59 14:59 Other: Voiding Method Urinal Weight 107.774 kg General: The patient is reclining in the bed. He is well-nourished, well- developed and in no acute distress. HEENT: Head is atraumatic, normocephalic. There is no scleral icterus. Fundus not visualized. Mucous membranes are moist. Neck: Supple without carotid bruits Heart: Regular rate and rhythm Lungs: No shortness of breath Extremities: Without edema Neurological examination Mental status: The patient is awake and alert. He has expressive aphasia. The patient is speaking however, he is not saying actual words. The patient has some difficulty following instructions. There seems to be a component of receptive aphasia as well. Cranial nerves: Pupils are equal at 3 mm and reactive. Visual salcedo are grossly intact. Extraocular movements are intact. There is no nystagmus. Right facial droop is present. Hearing is grossly intact. Tongue protrudes midline. Shoulder shrug is absent on the right. Motor: Right upper extremity strength is absent left upper and lower extremity strength 5/5. Deep tendon reflexes 3+/4+ in the right upper and lower extremities. Left sided reflexes 2+/4+. Coordination: Not assessed at this time Gait: Not assessed at this time Results CT scan of the brain images have been personally viewed. I agree with the radiology report - Laboratory Findings CBC and BMP: 09/08/24 12:39 09/08/24 12:39 Abnormal Lab Findings: Abnormal Labs 09/08/24 09/08/24 12:36 12:39 Sodium 136 L Glucose 149 H POC Glucose (mg/dL) 140 H Assessment and Plan Assessment: 1. The patient is a 64-year-old male with a past medical history of a large left cerebral infarct. He presents to the emergency department with what reportedly appears to be a generalized tonic-clonic seizure 2. History of hypertension 3. History of hypercholesterolemia 4. COPD Plan: 1. EEG has been ordered 2. Seizure precautions 3. Agree with Keppra dosing 4. Ativan 1 mg IV push as needed breakthrough seizure 5. Agree with speech therapy evaluation and possible swallow study Thank you for allowing us to participate in care of this patient Dr. Cook will assume neurologic coverage of this patient as of September 11, 2024 Time with Patient: Greater than 30 (65 minutes were spent caring for this patient today including, obtaining history, examining the patient, reviewing imaging, chart documentation, labs, placing orders and creating this note)
--- NOTE | 2024-09-11 08:39 | FL ---
EXAMINATION TYPE: FL barium swallow w video DATE OF EXAM: 09/11/2024 MODIFIED SWALLOW / DEGLUTITION STUDY CLINICAL HISTORY: Dysphagia. History of stroke. TECHNIQUE: Deglutition study is performed utilizing thin liquid barium, honey and nectar thick liqui d barium, barium thick pudding, and barium coated cracker. 2.39 minutes of fluoro time and 1 image i s obtained. Total dose area product (DAP) in uGy*m?, mGy*cm? (or similar): 0.44813 COMPARISON: None. FINDINGS: The oral and pharyngeal phases show satisfactory initiation with poor pharyngeal phase with all modalities tested. Lack of dentition leads to difficult mastication with solid modalities tested . Poor epiglottic inversion is seen. Single episode of transient penetration with thin liquid barium. There is no additional evidence of penetration or aspiration with any modality tested. No significa nt pharyngeal residue was appreciated. IMPRESSION: No aspiration observed. Please refer to speech therapist notes for further details if ne cessary. [facility], , 09/11/2024 8:36 AM
--- NOTE | 2024-09-11 14:50 | P.PN ---
Subjective Progress Note Date: 09/11/24 64-year-old female patient, presented to the emergency department with altered mentation. The patient's was unable to provide any history. The information was given by the . The patient has had previous history of stroke and has speech deficits. The patient also has chronic right-sided weakness/hemiplegia (December 2023). He is wheelchair dependent and he is nonambulatory. He has a feeing tube. There is a concern for an underlying seizure disorder as the patient's noted that he had an episode where he had up rolling of the eyes and shaking that lasted for around 4 to 5 minutes. No previous history of seizure disorder. Based on that, the patient was brought into the hospital. The jeff ent was afebrile. Hemodynamically stable. Currently is on 4 L of oxygen by nasal cannula. The white cell count is at 10.4 with a hemoglobin 14.8 and a platelet count of 402. Electrolytes are all within normal limits. LFTs are normal. Alcohol level is less than 10. The patient had a viral screen that was negative. In the emergency, a CAT scan of the brain was done that showed no acute process. There is encephalomalacia related to previous CVA the patient has a large remote left MCA distribution infarct with moderate degree of paranasal sinus disease. Chest x-ray showed small lung volumes, there is a lateral right midlung and left lower lobe pulmonary opacity concerning for pneumonia. Based on that, patient was started on IV Rocephin and Zithromax. The patient is also currently on Keppra 750 mg p.o. on a daily basis.Comorbidities include COPD, diabetes mellitus, previous history of CVA with residual right-sided weakness and speech deficits. The patient is also swallowing difficulties post CVA and the patient is receiving enteral feeding for nutritional support via a PEG tube. Patient is known to have hypertension hyperlipidemia in addition. On 09/09/2024, the patient is being seen for a follow-up. Patient is clinically stable. Remains NPO. No interval worsening shortness of breath. The patient currently is on 3 L of oxygen by nasal cannula with a pulse ox of 92%. No seizure activity has been noted. Family is at the bedside. Awaiting and neurology consultation. The patient was maintained on a IV Unasyn regarding aspiration pneumonia. Remains on DuoNeb nebulized treatments [id number]. On 09/10/2024, the patient is calm and comfortable and the patient is on room air oxygen with a pulse ox of 92%. The patient remains on IV Unasyn. No seizure ac tivity has been noted and we are still awaiting a swallow evaluation and a neurology evaluation. The patient remains on Keppra. EEG has not been completed yet. Neurology consultation is still pending. Meanwhile, the patient is awake and alert. He has chronic aphasia. Viral screen has been negative. Legionella urine antigen was also negative. No other new labs from today. The patient is seen today September 11, 2024 in follow-up on the regular medical floor. He is awake and alert in no acute distress. He is maintaining good O2 saturations in the mid 90s on room air oxygen. He is afebrile. Hemodynamically stable. Preliminary sputum culture revealed Streptococcus pneumoniae. Blood cu lture reveals no growth. He remains on Unasyn. Lovenox for DVT prophylaxis. Bronchodilators as needed. No aspiration noted on barium swallow. He is tolerating a dysphagia level 3 chopped diet/thin liquids. Objective - Vital Signs Vital signs: Vital Signs Temp 98.3 F 09/11/24 13:54 Pulse 78 09/11/24 13:54 Resp 16 09/11/24 13:54 BP 124/61 09/11/24 13:54 Pulse Ox 97 09/11/24 13:54 FiO2 21 09/10/24 09:41 Intake & Output 09/10/24 09/11/24 09/11/24 18:59 06:59 18:59 Intake Total 1150 Balance 1150 Intake: Intake, IV Titration 1150 Amount Ampicillin-Sulbactam 1.5 100 gm In Sodium Chloride 0.9 % 50 ml @ 100 mls/hr IVPB Q6HR [facility] Rx#:[id number] Lactated Ringers 1,000 ml 1050 @ 100 mls/hr IV .Q10H [facility] Rx#:[id number] Other: Voiding Method Urinal # Voids 1 # Bowel Movements 1 - Exam GENERAL EXAM: Alert, 4-year-old male, on room air, comfortable in no apparent distress. HEAD: Normocephalic. EYES: Normal reaction of pupils, equal size. NOSE: Clear with pink turbinates. THROAT: No erythema or exudates. NECK: No masses, no JVD. CHEST: No chest wall deformity. LUNGS: Equal air entry with no crackles, wheeze, rhonchi or dullness. CVS: S1 and S2 normal with no audible murmur, regular rhythm. ABDOMEN: No hepatosplenomegaly, normal bowel sounds, no guarding or rigidity. SPINE: No scoliosis or deformity SKIN: No rashes CENTRAL NERVOUS SYSTEM: Right sided hemiaplegia, tone is normal in all 4 extremities. EXTREMITIES: Right sided hemiaplasia, there is no peripheral edema. No clubbing, no cyanosis. Peripheral pulses are intact. - Labs CBC & Chem 7: 09/08/24 12:39 09/08/24 12:39 Labs: Microbiology - Last 24 Hours (Table) 09/08/24 20:01 Gram Stain - Preliminary Sputum Sputum Culture - Preliminary Streptococcus pneumoniae 09/08/24 14:37 Blood Culture - Preliminary Blood Assessment and Plan Assessment: Acute bilateral pneumonia secondary to Streptococcus pneumoniae, consider aspiration as the patient has chronic dysphagia and he has been orally eating and the patient had ? seizures Acute hypoxic respiratory failure secondary to above, improved and the patient is currently on room air oxygen History of CVA with right-sided hemiplegia and expressive aphasia Chronic dysphagia, patient was receiving tube feeds and around 2 months ago the patient was started on oral and he has not undergone a Barium swallow Altered mentation, rule out underlying seizure and he patient is back to baseline Hypertension Hyperlipidemia Obesity COPD Plan: The patient was seen and evaluated Swallow evaluation results reviewed Tolerating a dysphagia level 3 chopped diet Currently stable and on room air Remains on Unasyn is at the bedside, questions were answered Plan is for home with home care at discharge I have personally seen and examined the patient, performed the documentation and the assessment and plan as written. Number of minutes spent on the visit: 10 Dictation was produced using [employer] software. Please excuse any grammatical, word or spelling errors.
--- NOTE | 2024-09-11 20:32 | EEG ---
ELECTROENCEPHALOGRAM REPORT PREAMBLE: This is a 64-year-old male with seizure. The patient came to the ER with possible seizure-like activity with his eyes rolled back, shaking, and was confused for sometime afterwards. CURRENT MEDICATIONS: 1. Keppra. 2. Neurontin. 3. Cozaar. EEG FINDINGS: This is a 21-channel digital EEG recorded with video component, utilizing 10/20 international system with referential and bipolar montage. Background consists of moderately well-developed, poorly-regulated, mixed frequencies of 5 to 6 Hz theta intermixed with 2 to 3 Hz low-amplitude delta activity seen in bihemispheric region. Background does not seem to be clearly reactive to eye opening or closing. Photic driving response was not seen. Different stages of sleep were not seen. No focal or generalized epileptiform activity was seen. IMPRESSION: This is an abnormal EEG due to background slowing of at least moderate degree. This is a generalized cerebral dysfunction as can be seen with toxic metabolic encephalopathy or related to diffuse structural brain abnormality. Clinical correlation is recommended. No epileptiform activity was seen. MMODL / IJN: [id number] /
--- NOTE | 2024-09-11 21:51 | P.PN ---
Progress Note - Text Progress Note Date: 09/11/24 Chief Complaint: Seizure This is a 64-year-old patient follows with home MD, provider Blaire. Chronic medical condition include diabetes, hypertension, hyperlipidemia PEG tube.Patient's speech cannot be deciphered. History is obtained by the at the bedside. December 2023 patient had a rather stroke. Affecting mainly the right side. Patient started using the right leg. No movement in the right arm. Patient's speech is a bit better now but cannot really be understood. Patient is able to follow commands. Able to feed himself. Patient now working with therapy has a right leg brace. Was able to use 8 steps with a walker yesterday. Has a PEG tube that is not being used. has been feeding him by mouth. Patient is due for a barium swallow study today. Patient was noted to be "what was described as a possible seizure activity. Eyes rolled back. Shaking. Patient was confused for some time afterwards. Patient continues to smoke September 09: Overflowing the ER. at the bedside. Spoke to the nurse. Put the patient on applesauce. Still formal swallow study done on Wednesday. Discussed with . On IV Unasyn. Taking oral medications. September 10: No further episodes of seizures reported. Tolerating applesauce and medications. Spoke to nurse Dayna. No signs of coughing. Pending formal swallow study tomorrow and speech therapy. Pending EEG. On Keppra. IV fluids September 11: Patient was seen this afternoon. Patient did pass his modified barium swallow. Seen by speech therapist. Placed on a chopped diet. EEG done later this afternoon showed no epileptiform activity. Discussed with patient and . Watch for 24 hours. Hopefully discharge tomorrow. On IV Unasyn. Active Medications Hydrocodone Bitart/Acetaminophen (Hydrocodone/Apap 7.5-325mg 1 Each Tab) 1 each PO Q6H PRN PRN Reason: Pain Last Admin: 09/11/24 20:51 Dose: 1 each Albuterol/Ipratropium (Ipratropium-Albuterol 3 Ml Neb) 3 ml INHALATION RT-Q4H PRN PRN Reason: shortness of breath Last Admin: 09/08/24 19:50 Dose: 3 ml Atorvastatin Calcium (Atorvastatin 40 Mg Tab) 40 mg PO DAILY [facility] Last Admin: 09/11/24 08:36 Dose: 40 mg Duloxetine HCl (Duloxetine Hcl 60 Mg Capsule.Dr) 60 mg PO DAILY [facility] Last Admin: 09/11/24 08:36 Dose: 60 mg Enoxaparin Sodium (Enoxaparin 40 Mg/0.4 Ml Syringe) 40 mg SQ DAILY [facility] Last Admin: 09/11/24 08:36 Dose: 40 mg Gabapentin (Gabapentin 300 Mg Cap) 300 mg PO TID [facility] Last Admin: 09/11/24 20:50 Dose: 300 mg Hydrochlorothiazide (Hydrochlorothiazide 12.5 Mg Cap) 12.5 mg PO DAILY [facility] Last Admin: 09/11/24 08:36 Dose: 12.5 mg Ampicillin Sodium/Sulbactam (Sodium 1.5 gm/ Sodium Chloride) 50 mls @ 100 mls/hr IVPB Q6HR [facility]; Protocol Last Admin: 09/11/24 18:31 Dose: 100 mls/hr Lactated Ringer's (Lactated Ringers) 1,000 mls @ 100 mls/hr IV .Q10H [facility] Last Admin: 09/11/24 20:17 Dose: Not Given Levetiracetam (Levetiracetam 750 Mg Tab) 750 mg PO Q12HR [facility] Last Admin: 09/11/24 20:51 Dose: 750 mg Losartan Potassium (Losartan 50 Mg Tab) 50 mg PO DAILY [facility] Last Admin: 09/11/24 08:36 Dose: 50 mg Miscellaneous Information (Pneumonia Protocol Utilized 1 Each Misc) 1 each PO ONCE PRN PRN Reason: Per Protocol Tiotropium [place] (Tiotropium 2.5 Mcg Inhaler) 2 puff INHALATION RT-DAILY [facility] Last Admin: 09/11/24 08:48 Dose: 2 puff Social history: Lives with his . Smokes a pack a day for a long time. Physical examination: VITAL SIGNS: 98.3, 78, 16, 124 x 61, 97% room air GENERAL: BMI 34.1, laying in bed, comfortable EYES: Pupils equal. Conjunctiva felicia l. HEENT: External appearance of nose and ears normal, oral cavity grossly normal. NECK: JVD not raised; masses not palpable. HEART: First and second heart sounds are normal; no edema. LUNGS: Respiratory rate normal; decreased breath sounds. ABDOMEN: Soft, nontender, liver spleen not palpable, no masses palpable. PEG tube PSYCH: Unable to speak MUSCULOSKELETAL:No Clubbing/cyanosis;muscles-grossly intact NEUROLOGICAL: Cranial nerves grossly intact; no facial asymmetry, garbled speech . Power in right arm 0/5. Some movement in the right leg.. Moves his left side INVESTIGATIONS, reviewed in the clinical context: EEG: No epileptiform activity. Modified barium swallow: No aspiration observed. Full details in Procalcitonin 0.06 September 08, 2024: White count 10.4 hemoglobin 14.8 platelets 402 sodium 136 potassium 3.7 creatinine 0.71 EKG tracing personally reviewed by me-normal sinus rhythm. Chest x-ray film personally reviewed by me-scattered infiltrates CT brain without contrast: Encephalomalacia from large (MCA infarct involving the left frontal parietal temporal lobes. Also involvement of the left basal ganglia and insula. Influenza type A, type B, RSV, SARS-CoV-2: Not detected Assessment and plan: -New onset seizures likely precipitated by prior significant stroke in December 2023. This was her first witnessed episode. Because of significant stroke and high risk of recurrent seizure. Placed on Keppra. EEG no epileptiform activity. Neurology following -Right hemiparesis with more loss of power in the right arm. From previous stroke in December 2023. Patient is getting physical therapy. Has a brace of the right leg. Day prior to admission took about 8 steps with walker. 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 Speech cannot be understood -Dysphagia. Patient has a PEG tube has not been used. Patient has been feeding him. Modified barium swallow: No aspiration. Chopped diet. Supervised. Seen by speech therapist -Probable aspiration pneumonitis secondary to seizure activity: Improving IV Unasyn -Essential hypertension Cozaar. Hydrochlorothiazide. -Hyperlipidemia Lipitor -Chronic nicotine dependence cigarette smoker Nicotine patch -COPD in a current smoker DuoNeb 3 times daily -Full code, [discussed with ] Discussed with patient at the bedside. Did tell the that patient should be follow-up outpatient again with speech therapy and if continues to tolerate his diet well then PEG tube may be removed as an outpatient. Past Medical History Past Medical History: COPD, CVA/TIA, Diabetes Mellitus, Hyperlipidemia, Hypertension Additional Past Medical History / Comment(s): stroke with right sided defecits, peg tube, back surgery, Past Surgical History: Tonsillectomy Past Psychological History: No Psychological Hx Reported Smoking Status: Current every day smoker Past Alcohol Use History: Occasional Past Drug Use History: Marijuana
[2024-09-11 22:13] VITALS: RESP 18
[2024-09-12 07:42] VITALS: BP 123/85; PULSE 62; TEMP 97.6
--- NOTE | 2024-09-12 10:55 | P.PN ---
Subjective Progress Note Date: 09/11/24 Patient initially seen by Dr. Troncoso. Please refer to her note for details. Patient is a 64-year-old male with history of large left cerebral infarct. Came in with possible seizures. EEG was ordered. Patient was seen for a follow-up. Apparently patient had history of a large involving stroke the left MCA vascular territory on 01/06/2024 with right hemiplegia. He has severe right arm weakness, can move his right leg some. Patient apparently came from home prior to current admission. He was admitted because of seizure-like activity. At present family wants patient to be transferred to facility. Patient's mentions that he can swallow, although he still has a PEG tube. When he tries to talk, some words come out. He has brace for the right leg, follows up with PT, OT and speech therapy since his stroke. He is able to take 8 steps with assistance of a walker. He did assistance to stand up. Objective - Vital Signs Vital signs: Vital Signs Temp 98.3 F 09/11/24 13:54 Pulse 78 09/11/24 13:54 Resp 16 09/11/24 13:54 BP 124/61 09/11/24 13:54 Pulse Ox 97 09/11/24 13:54 FiO2 21 09/10/24 09:41 Intake & Output 09/11/24 09/11/24 09/12/24 06:59 18:59 06:59 Intake Total 800 Balance 800 Weight 107.774 kg Intake: Intake, IV Titration 500 Amount Lactated Ringers 1,000 ml 500 @ 100 mls/hr IV .Q10H [facility] Rx#:[id number] Oral 300 Other: Voiding Method Urinal # Voids 1 2 # Bowel Movements 1 - Exam On examination patient is alert and awake. Patient is well-nourished. He is aphasic. He has significant expressive aphasia. Patient vocalizes but not saying actual words. Some difficulty with comprehension. He has some component of receptive aphasia as well. Patient has right facial droop. Patient is spastic plegic in the right upper limb. He is able to lift his right leg very well off the bed. - Labs CBC & Chem 7: 09/08/24 12:39 09/08/24 12:39 Labs: Microbiology - Last 24 Hours (Table) 09/08/24 20:01 Gram Stain - Preliminary Sputum Sputum Culture - Preliminary Streptococcus pneumoniae 09/08/24 14:37 Blood Culture - Preliminary Blood Assessment and Plan Assessment: 1. The patient is a 64-year-old male with a past medical history of a large left cerebral infarct. He presents to the emergency department with what reportedly appears to be a generalized tonic-clonic seizure 2. History of hypertension 3. History of hypercholesterolemia 4. COPD Plan: 1. EEG was performed, which revealed background slowing of at least moderate degree. This is suggestive of generalized cerebral dysfunction as can be seen with toxic metabolic encephalopathy related to diffuse structural brain abnormality. No epileptiform activity was seen. 2. Seizure precautions 3. Agree with Keppra dosing of 750 mg twice daily. 4. Patient has acute bilateral pneumonia possibly due to aspiration. Patient currently on Unasyn. 5. Speech therapy recommended patient tolerating dysphagia level 3 chopped diet. 6. Neurologically clear for discharge. Recommend follow-up with neurologist outpatient.
--- NOTE | 2024-09-12 14:53 | P.PN ---
Subjective Progress Note Date: 09/12/24 64-year-old female patient, presented to the emergency department with altered mentation. The patient's was unable to provide any history. The information was given by the . The patient has had previous history of stroke and has speech deficits. The patient also has chronic right-sided weakness/hemiplegia (December 2023). He is wheelchair dependent and he is nonambulatory. He has a feeing tube. There is a concern for an underlying seizure disorder as the patient's noted that he had an episode where he had up rolling of the eyes and shaking that lasted for around 4 to 5 minutes. No previous history of seizure disorder. Based on that, the patient was brought into the hospital. The jeff ent was afebrile. Hemodynamically stable. Currently is on 4 L of oxygen by nasal cannula. The white cell count is at 10.4 with a hemoglobin 14.8 and a platelet count of 402. Electrolytes are all within normal limits. LFTs are normal. Alcohol level is less than 10. The patient had a viral screen that was negative. In the emergency, a CAT scan of the brain was done that showed no acute process. There is encephalomalacia related to previous CVA the patient has a large remote left MCA distribution infarct with moderate degree of paranasal sinus disease. Chest x-ray showed small lung volumes, there is a lateral right midlung and left lower lobe pulmonary opacity concerning for pneumonia. Based on that, patient was started on IV Rocephin and Zithromax. The patient is also currently on Keppra 750 mg p.o. on a daily basis.Comorbidities include COPD, diabetes mellitus, previous history of CVA with residual right-sided weakness and speech deficits. The patient is also swallowing difficulties post CVA and the patient is receiving enteral feeding for nutritional support via a PEG tube. Patient is known to have hypertension hyperlipidemia in addition. On 09/09/2024, the patient is being seen for a follow-up. Patient is clinically stable. Remains NPO. No interval worsening shortness of breath. The patient currently is on 3 L of oxygen by nasal cannula with a pulse ox of 92%. No seizure activity has been noted. Family is at the bedside. Awaiting and neurology consultation. The patient was maintained on a IV Unasyn regarding aspiration pneumonia. Remains on DuoNeb nebulized treatments [id number]. On 09/10/2024, the patient is calm and comfortable and the patient is on room air oxygen with a pulse ox of 92%. The patient remains on IV Unasyn. No seizure ac tivity has been noted and we are still awaiting a swallow evaluation and a neurology evaluation. The patient remains on Keppra. EEG has not been completed yet. Neurology consultation is still pending. Meanwhile, the patient is awake and alert. He has chronic aphasia. Viral screen has been negative. Legionella urine antigen was also negative. No other new labs from today. The patient is seen today September 11, 2024 in follow-up on the regular medical floor. He is awake and alert in no acute distress. He is maintaining good O2 saturations in the mid 90s on room air oxygen. He is afebrile. Hemodynamically stable. Preliminary sputum culture revealed Streptococcus pneumoniae. Blood cu lture reveals no growth. He remains on Unasyn. Lovenox for DVT prophylaxis. Bronchodilators as needed. No aspiration noted on barium swallow. He is tolerating a dysphagia level 3 chopped diet/thin liquids. The patient is seen today September 12, 2024 in follow-up on the regular medical floor. He is awake and alert in no acute distress. He has been up to the shower with assistance. He is maintaining good O2 saturations in the 90s on room air oxygen. EEG revealed abnormal background slowing of at least moderate degree. This is a generalized cerebral dysfunction as can be seen with toxic m etabolic encephalopathy or related to diffuse structural brain abnormality. No epileptiform activity was seen. Him culture was positive for Streptococcus pneumoniae. Completed Unasyn. Remains on Keppra. Remains on DuoNeb inhalations. Objective - Vital Signs Vital signs: Vital Signs Temp 97.6 F 09/12/24 07:17 Pulse 62 09/12/24 07:35 Resp 18 09/12/24 07:35 BP 123/85 09/12/24 07:17 Pulse Ox 98 09/12/24 07:17 FiO2 21 09/10/24 09:41 Intake & Output 09/11/24 09/12/24 09/12/24 18:59 06:59 18:59 Intake Total 800 120 Balance 800 120 Weight 107.774 kg Intake: Intake, IV Titration 500 Amount Lactated Ringers 1,000 ml 500 @ 100 mls/hr IV .Q10H [facility] Rx#:[id number] Oral 300 120 Other: Voiding Method Urinal Urinal # Voids 2 2 - Exam GENERAL EXAM: Alert, 64-year-old male, on room air oxygen, up to shower with assistance, in no apparent distress. HEAD: Normocephalic. EYES: Normal reaction of pupils, equal size. NOSE: Clear with pink turbinates. THROAT: No erythema or exudates. NECK: No masses, no JVD. CHEST: No chest wall deformity. LUNGS: Equal air entry with no crackles, wheeze, rhonchi or dullness. CVS: S1 and S2 normal with no audible murmur, regular rhythm. ABDOMEN: No hepatosplenomegaly, normal bowel sounds, no guarding or rigidity. SPINE: No scoliosis or deformity SKIN: No rashes CENTRAL NERVOUS SYSTEM: Right sided hemiaplegia, tone is normal in all 4 extremities. EXTREMITIES: Right sided hemiaplasia, there is no peripheral edema. No clubbing, no cyanosis. Peripheral pulses are intact. - Labs CBC & Chem 7: 09/08/24 12:39 09/08/24 12:39 Labs: Microbiology - Last 24 Hours (Table) 09/08/24 20:01 Gram Stain - Final Sputum Sputum Culture - Final Streptococcus pneumoniae 09/08/24 14:37 Blood Culture - Preliminary Blood Assessment and Plan Assessment: Acute bilateral pneumonia secondary to Streptococcus pneumoniae, past barium swallow evaluation, has chronic dysphagia and he has been orally eating Acute hypoxic respiratory failure secondary to above, improved and on room air oxygen History of CVA with right-sided hemiplegia and expressive aphasia Chronic dysphagia, patient was receiving tube feeds and around 2 months ago the patient was started on oral and he passed a Barium swallow Altered mentation, rule out underlying seizure and he patient is back to baseline Hypertension Hyperlipidemia Obesity COPD Plan: The patient was seen and evaluated EEG results and medications reviewed Tolerating a dysphagia level 3 chopped diet Currently stable and on room air Continue his home Incruse Completed Unasyn Remains on Keppra Plan is for home with home care today I have personally seen and examined the patient, performed the documentation and the assessment and plan as written. Number of minutes spent on the visit: 10 Dictation was produced using [employer] dictation software. Please excuse any grammatical, word or spelling errors.
--- NOTE | 2024-09-12 20:51 | P.DS ---
Providers Date of admission: 09/08/24 13:52 Expected date of discharge: 09/12/24 Attending physician: Aaron Horan Consults: 09/08/24 13:49 Consult Physician Routine Consulting Provider: Pascual Daniel Consult Reason/Comments: new onset seizure Do you want consulting provider notified?: Yes 09/09/24 18:31 Consult Physician Routine Consulting Provider: Arjun Daniel Consult Reason/Comments: New onset seizure Do you want consulting provider notified?: Yes Primary care physician: Stated None Hospital Course: Chief Complaint: Seizure This is a 64-year-old patient follows with home MD, provider Blaire. Chronic medical condition include diabetes, hypertension, hyperlipidemia PEG tube.Patient's speech cannot be deciphered. History is obtained by the at the bedside. December 2023 patient had a rather stroke. Affecting mainly the right side. Patient started using the right leg. No movement in the right arm. Patient's speech is a bit better now but cannot really be understood. Patient is able to follow commands. Able to feed himself. Patient now working with therapy has a right leg brace. Was able to use 8 steps with a walker yesterday. Has a PEG tube that is not being used. has been feeding him by mouth. Patient is due for a barium swallow study today. Patient was noted to be "what was described as a possible seizure activity. Eyes rolled back. Shaking. Patient was confused for some time afterwards. Patient continues to smoke September 09: Overflowing the ER. at the bedside. Spoke to the nurse. Put the patient on applesauce. Still formal swallow study done on Wednesday. Discussed with . On IV Unasyn. Taking oral medications. September 10: No further episodes of seizures reported. Tolerating applesauce and medications. Spoke to nurse Dayna. No signs of coughing. Pending formal swallow study tomorrow and speech therapy. Pending EEG. On Keppra. IV fluids September 11: Patient was seen this afternoon. Patient did pass his modified barium swallow. Seen by speech therapist. Placed on a chopped diet. EEG done later this afternoon showed no epileptiform activity. Discussed with patient and . Watch for 24 hours. Hopefully discharge tomorrow. On IV Unasyn. September 12: Sitting up. Doing well. Patient is able to understand well. Follow commands. Just cannot speak. Patient be discharged on chopped diet. Supervised feeding 1: 1. Will follow-up with speech therapy in a month's time. If doing well then removal of PEG tube can be decided. No further respiratory symptoms. DC antibiotics. Follow-up with neurology discharge planning more than 35 minutes Social history: Lives with his . Smokes a pack a day for a long time. Physical examination: VITAL SIGNS: 97.6, 62, 18, [birth year]20[birth year]1984, 98% room air GENERAL: BMI 34.1, up in chair, comfortable EYES: Pupils equal. Conjunctiva felicia l. HEENT: External appearance of nose and ears normal, oral cavity grossly normal. NECK: JVD not raised; masses not palpable. HEART: First and second heart sounds are normal; no edema. LUNGS: Respiratory rate normal; decreased breath sounds. ABDOMEN: Soft, nontender, liver spleen not palpable, no masses palpable. PEG tube PSYCH: Unable to speak MUSCULOSKELETAL:No Clubbing/cyanosis;muscles-grossly intact NEUROLOGICAL: Cranial nerves grossly intact; no facial asymmetry, garbled speech . Power in right arm 0/5. Some movement in the right leg.. Moves his left side INVESTIGATIONS, reviewed in the clinical context: EEG: No epileptiform activity. Modified barium swallow: No aspiration observed. Full details in Procalcitonin 0.06 September 08, 2024: White count 10.4 hemoglobin 14.8 platelets 402 sodium 136 potassium 3.7 creatinine 0.71 EKG tracing personally reviewed by me-normal sinus rhythm. Chest x-ray film personally reviewed by me-scattered infiltrates CT brain without contrast: Encephalomalacia from large (MCA infarct involving the left frontal parietal temporal lobes. Also involvement of the left basal ganglia and insula. Influenza type A, type B, RSV, SARS-CoV-2: Not detected Assessment and plan: -New onset seizures likely precipitated by prior significant stroke in December 2023. This was her first witnessed episode. Because of significant stroke and high risk of recurrent seizure. Placed on Keppra. EEG no epileptiform activity. Neurology following Follow-up with Dr. Jono Juarez neurology outpatient -Right hemiparesis with more loss of power in the right arm. From previous stroke in December 2023. Patient is getting physical therapy. Has a brace of the right leg. Day prior to admission took about 8 steps with walker. 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 Only garbled speech -Dysphagia. Patient has a PEG tube has not been used. Patient has been feeding him. Modified barium swallow: No aspiration. Chopped diet. Supervised. Seen by speech therapist Follow-up outpatient in a month's time with speech therapist. If continues to do well then remove the PEG tube to be done. -Probable aspiration pneumonitis secondary to seizure activity: Improved IV Unasyn. DC antibiotics -Essential hypertension Cozaar. Hydrochlorothiazide. -Hyperlipidemia Lipitor -Chronic nicotine dependence cigarette smoker Nicotine patch -COPD in a current smoker Incruse Ellipta -Full code, [discussed with ] Disposition: Home Past Medical History Past Medical History: COPD, CVA/TIA, Diabetes Mellitus, Hyperlipidemia, Hypertension Additional Past Medical History / Comment(s): stroke with right sided defecits, peg tube, back surgery, Past Surgical History: Tonsillectomy Past Psychological History: No Psychological Hx Reported Smoking Status: Current every day smoker Past Alcohol Use History: Occasional Past Drug Use History: Marijuana Plan - Discharge Summary Discharge Rx Participant: Yes New Discharge Prescriptions: New levETIRAcetam [Keppra] 750 mg PO Q12HR #90 tab Continue Atorvastatin [Lipitor] 40 mg PO DAILY hydroCHLOROthiazide 12.5 mg PO DAILY DULoxetine HCL [Cymbalta] 60 mg PO DAILY Gabapentin 300 mg PO TID HYDROcodone/APAP 7.5-325MG [[place] 7.5-325] 1 tab PO Q6H PRN PRN Reason: Pain Losartan [Cozaar] 50 mg PO DAILY Umeclidinium [place] [Incruse Ellipta] 1 puff INHALATION RT-DAILY Discontinued hydrOXYzine HCL [Atarax] 25 mg PO TID Discharge Medication List Atorvastatin [Lipitor] 40 mg PO DAILY 09/08/24 [History] DULoxetine HCL [Cymbalta] 60 mg PO DAILY 09/08/24 [History] Gabapentin 300 mg PO TID 09/08/24 [History] HYDROcodone/APAP 7.5-325MG [[place] 7.5-325] 1 tab PO Q6H PRN 09/08/24 [History] Losartan [Cozaar] 50 mg PO DAILY 09/08/24 [History] Umeclidinium [place] [Incruse Ellipta] 1 puff INHALATION RT-DAILY 09/08/24 [History] hydroCHLOROthiazide 12.5 mg PO DAILY 09/08/24 [History] levETIRAcetam [Keppra] 750 mg PO Q12HR #90 tab 09/12/24 [Rx] Follow up Appointment(s)/Referral(s): Sixto Mendosa [REFERRING] - 1-2 Days Sarah Varghese MD [REFERRING] - 09/14/24 2:15 pm Patient Instructions/Handouts: Seizure/Epilepsy Discharge Instructions & Follow-Up, Viral Pneumonia (DC), New-Onset Seizure in Adults (DC) Activity/Diet/Wound Care/Special Instructions: chopped diet 1:1 suervised feeding f/u with speech therapy - 1 month . make appt before dc
== END 2024-09-12 12:50 | disposition home or self-care (01) | DRG 100 ==
LOC: EC 12:28 → 3SCARD 13:52 → 4SSUR 09-11 10:43
PROVIDERS: ADMIT Hospitalist; ATTEND Hospitalist
PROC: 3E0G76Z Introduction of Nutritional Substance into Upper GI, Via Natural or Artificial Opening (ICD-10-PCS; principal; 2024-09-08)
DX: R56.9 Unspecified convulsions (principal); J69.0 Pneumonitis due to inhalation of food and vomit; J96.01 Acute respiratory failure with hypoxia; G93.89 Other specified disorders of brain; I69.320 Aphasia following cerebral infarction; B95.3 Streptococcus pneumoniae as the cause of diseases classified elsewhere; E11.9 Type 2 diabetes mellitus without complications; J44.0 Chronic obstructive pulmonary disease with (acute) lower respiratory infection; I69.351 Hemiplegia and hemiparesis following cerebral infarction affecting right dominant side; E66.9 Obesity, unspecified; I10 Essential (primary) hypertension; Z93.1 Gastrostomy status; I69.391 Dysphagia following cerebral infarction; R29.810 Facial weakness; M79.7 Fibromyalgia; F17.210 Nicotine dependence, cigarettes, uncomplicated; I69.322 Dysarthria following cerebral infarction; I69.398 Other sequelae of cerebral infarction; E78.00 Pure hypercholesterolemia, unspecified; Z20.822 Contact with and (suspected) exposure to COVID-19; Z71.3 Dietary counseling and surveillance; Z79.899 Other long term (current) drug therapy; Z99.3 Dependence on wheelchair
CPT/HCPCS: 36415; 70450; 71045; 71046; 74230; 80053; 80320; 83735; 84145; 85025; 87040; 87070; 87077; 87186; 87205; 87449; 87636; 93005; 94640; 94760; 95816; 96361; 96365; 96366; 96367; 96372; 96375; 99285

== ENCOUNTER → 2024-09-15 | Outpatient (CLI) | payer MEDICARE, OTHER | END | disposition home or self-care (01) | LOC: LABWHC1 14:33 | PROVIDERS: ATTEND Psychiatry & Neurology Neurology | DX: R56.9 Unspecified convulsions (principal) | CPT/HCPCS: 36415; 80177 ==